=== PATIENT | female | born 1985 | race Two or more races ===

== ENCOUNTER → 2020-06-15 | Outpatient (CLI) | payer MEDICAID ==
--- NOTE | 2020-06-15 12:39 | WOMENS IMAGING REPORT ---
EXAM DESCRIPTION: U/S THYROID/ST TIS HEAD NECK IMAGES COMPLETED DATE/TIME: 06/15/2020 11:42 am REASON FOR STUDY: R22.1 LOCALIZED SWELLING, MASS AND LUMP, NECK R22.1 LOCALIZED SWELLING, MASS AND LUMP, NECK COMPARISON: None. TECHNIQUE: Dynamic and static rodríguez-scale images acquired of the thyroid gland. Selected additional c olor/power Doppler images recorded. All images stored to PACS. LIMITATIONS: None. FINDINGS: RIGHT LOBE: Normal size. Homogeneous echotexture. No cystic or solid masses. LEFT LOBE: Normal size. Homogeneous echotexture. There is a solid nodule measured 1.5 x 0.7 x 0.9 c m. This demonstrates mixed echogenicity. There is increased vascularity. Margins are well demarcat ed. ISTHMUS: Normal size. Homogeneous echotexture. No cystic or solid masses. OTHER: No other significant finding. IMPRESSION: 1.5 x 0.7 x 0.9 cm solid mass in the left lobe of the thyroid. This corresponds to a TR 3 lesion. Based on size continued surveillance is recommended. TECHNICAL DOCUMENTATION: JOB ID: [id number] 2010 [employer]- All Rights Reserved Reading location - IP/workstation name: [email or web address]
== END ==
LOC: WI 11:09
PROVIDERS: ATTEND Nurse Practitioner Family
DX: E04.1 Nontoxic single thyroid nodule (principal)
CPT/HCPCS: 76536